=== PATIENT | female | born 1930 | race Caucasian/White ===

== ENCOUNTER 2016-02-20 11:07 | Outpatient (CLI) | payer MEDICARE, OTHER | END 2016-02-20 11:08 | disposition home or self-care (01) | DX: I48.0 Paroxysmal atrial fibrillation (principal) ==

== ENCOUNTER 2016-03-05 | Outpatient (CLI) | payer MEDICARE, OTHER | END 2016-03-05 09:46 | disposition critical access hospital (66) | CPT/HCPCS: A0425; A0427 ==

== ENCOUNTER 2016-03-05 10:13 | Inpatient (IN) | payer MEDICARE, OTHER ==
[2016-03-05] MEDS ORDERED: cefTRIAXone 1 GM in SODIUM CHLORIDE 0.9% MINIBAG 100 ML IV STA (12:27)
[2016-03-05] MEDS ORDERED: AZITHROMYCIN INJ 500 MG in SODIUM CHLORIDE 0.9% 250 ML IV STA (12:27)
[2016-03-05] MEDS ORDERED: ACETAMINOPHEN 325 MG TABLET PO STA (12:30)
[2016-03-05] MEDS ORDERED: cefTRIAXone 1 GM VIAL ONE (12:35)
[2016-03-05] MEDS ORDERED: SODIUM CHLORIDE FLUSH 0.9% 10 ML SYRINGE IVP PRN (13:09)
[2016-03-05] MEDS ORDERED: ONDANSETRON 4 MG/2 ML VIAL IVP PRN (13:09)
[2016-03-05] MEDS ORDERED: ACETAMINOPHEN 325 MG TABLET PO PRN (13:09)
[2016-03-05] MEDS ORDERED: HYDROcod/ACETAM 5/325 MG TABLET PO PRN (13:09)
[2016-03-05] MEDS ORDERED: SODIUM CHLORIDE 0.9% 1,000 ML IV ONE (13:09)
[2016-03-05] MEDS ORDERED: ACETAMINOPHEN 325 MG TABLET PO ONE (13:21)
[2016-03-05] MEDS ORDERED: cefTRIAXone 1 GM in SODIUM CHLORIDE 0.9% MINIBAG 100 ML IV SCH (14:00)
[2016-03-05] MEDS: SODIUM CHLORIDE FLUSH 0.9% 10 ML SYRINGE IVP SCH ×2 (15:27→21:38)
[2016-03-05] MEDS: WARFARIN 1 MG TABLET PO SCH (15:27)
[2016-03-05] MEDS: SODIUM CHLORIDE 0.9% 1,000 ML IV SCH (16:09)
[2016-03-05] MEDS ORDERED: VANCOMYCIN INJ 1 GM in SODIUM CHLORIDE 0.9% 250 ML IV SCH (17:00)
[2016-03-05] MEDS: LACTOB/S.THERMOPHL/BIFIDO CAPSULE PO SCH (17:43)
[2016-03-05] MEDS: CEFEPIME 1 GM in SODIUM CHLORIDE 0.9% MINIBAG 100 ML IV SCH (19:06)
[2016-03-05] MEDS: ATORVASTATIN 10 MG TABLET PO SCH (21:38)
[2016-03-05] MEDS ORDERED: TEMAZEPAM 7.5 MG CAPSULE PO PRN (21:43)
[2016-03-05] MEDS: IPRATROPIUM/ALBUTEROL 3 ML NEB INH PRN (22:49)
[2016-03-06] MEDS: SODIUM CHLORIDE 0.9% 1,000 ML IV SCH ×3 (04:58→13:31)
[2016-03-06] MEDS ORDERED: PANTOPRAZOLE 40 MG TABLET PO SCH (07:00)
[2016-03-06] MEDS: WARFARIN 1 MG TABLET PO SCH (07:22)
[2016-03-06] MEDS: SODIUM CHLORIDE FLUSH 0.9% 10 ML SYRINGE IVP SCH ×3 (07:22→21:40)
[2016-03-06] MEDS: LACTOB/S.THERMOPHL/BIFIDO CAPSULE PO SCH ×2 (09:00→16:16)
[2016-03-06] MEDS ORDERED: CHOLECALCIFEROL 1,000 UNIT TABLET PO SCH (09:00)
[2016-03-06] MEDS ORDERED: POLYETHYLENE GLYCOL 3350 17 GM PACKET PO SCH (09:00)
[2016-03-06] MEDS: HYDROcod/ACETAM 10 MG/325 MG TABLET PO PRN ×2 (10:32→16:16)
[2016-03-06] MEDS ORDERED: SODIUM CHLORIDE 0.9% 1,000 ML IV ONE (10:56)
[2016-03-06] MEDS ORDERED: SODIUM CHLORIDE 0.9% 1,000 ML IV SCH (11:00)
[2016-03-06] MEDS ORDERED: cefTRIAXone 2 GM in SODIUM CHLORIDE 0.9% MINIBAG 100 ML IV SCH (12:00)
[2016-03-06] MEDS: IPRATROPIUM/ALBUTEROL 3 ML NEB INH PRN (13:45)
[2016-03-06] MEDS ORDERED: AZITHROMYCIN INJ 500 MG in SODIUM CHLORIDE 0.9% 250 ML IV SCH (14:00)
[2016-03-06] MEDS: CEFEPIME 1 GM in SODIUM CHLORIDE 0.9% MINIBAG 100 ML IV SCH (18:37)
[2016-03-06] MEDS ORDERED: SODIUM BICARBONATE 100 MEQ in DEXTROSE 5% 1,000 ML IV SCH (19:00)
[2016-03-06] MEDS ORDERED: FUROSEMIDE 40 MG/4 ML VIAL IVP SCH (19:41)
[2016-03-06] MEDS: ATORVASTATIN 10 MG TABLET PO SCH (21:40)
[2016-03-07] MEDS ORDERED: VANCOMYCIN INJ 500 MG in SODIUM CHLORIDE 0.9% 100ML 100 ML IV SCH (16:00)
[2016-03-08] MEDS ORDERED: CALCITRIOL 0.25 MCG CAPSULE PO SCH (13:06)
[2016-03-08] MEDS ORDERED: WARFARIN 1 MG TABLET PO SCH (14:00)
== END 2016-03-07 02:20 | disposition short-term general hospital (02) | DRG 871 ==
DX: A41.9 Sepsis, unspecified organism (principal); J18.9 Pneumonia, unspecified organism; N28.9 Disorder of kidney and ureter, unspecified; I11.0 Hypertensive heart disease with heart failure; I50.9 Heart failure, unspecified; R79.1 Abnormal coagulation profile; D64.9 Anemia, unspecified; E78.00 Pure hypercholesterolemia, unspecified; I50.33 Acute on chronic diastolic (congestive) heart failure; N17.9 Acute kidney failure, unspecified; Q61.3 Polycystic kidney, unspecified; I13.0 Hypertensive heart and chronic kidney disease with heart failure and stage 1 through stage 4 chronic kidney disease, or unspecified chronic kidney disease; E87.2 Acidosis; R65.20 Severe sepsis without septic shock; N18.3 Chronic kidney disease, stage 3 (moderate); I48.2 Chronic atrial fibrillation; I95.9 Hypotension, unspecified; E86.0 Dehydration; R09.02 Hypoxemia; E78.5 Hyperlipidemia, unspecified; K21.9 Gastro-esophageal reflux disease without esophagitis; I25.10 Atherosclerotic heart disease of native coronary artery without angina pectoris; Y95 Nosocomial condition; Z66 Do not resuscitate; Z79.01 Long term (current) use of anticoagulants; Z95.1 Presence of aortocoronary bypass graft; Z95.0 Presence of cardiac pacemaker; Z87.891 Personal history of nicotine dependence

== ENCOUNTER 2016-03-07 | Outpatient (CLI) | payer MEDICARE, OTHER | END 2016-03-07 02:29 | disposition short-term general hospital (02) | CPT/HCPCS: A0425; A0426 ==